=== PATIENT | male | born 1935 | race Caucasian/White ===

== ENCOUNTER 2017-11-29 11:46 | Emergency (ER) | payer MEDICARE ==
--- OUTSIDE RECORDS SUMMARY | 2017-11-29 12:25 | XMS REPORT ---
:1935 External Reference #:[id number] Author Organization [facility] Address [address] [id number] Phone [phone] Care Team Providers Name Role Phone Junior Hunt M.D. Care Team Information Irrigator Gravity Flow Unavailable Junior Hunt M.D. Primary Care Physician Unavailable Payers Type Date Identification Numbers Payment Provider Subscriber Medicare Primary Expires: Policy Number: [employer]-[place] Brandon Mckeon [id number] [facility] PayID: [id number] [address] [place] [address] Medigap Part B Expires: 2016 Policy Number: [facility] Parminder Mckeon [id number] [facility] PayID: [id number] [address] [address] [place] [address] Medigap Part B Expires: 2017 Policy Number: Isacc Mckeon [id number] [facility] PayID: [id number] [address] [address] Medigap Part B Policy Number: [id number] [facility] Brandon Mckeon Group Number: [id number] [address] [address] PayID: [id number] SophieJJ pierce [id number] Problems Date Description Provider Status Onset: 02/14/2009 Essential hypertension Sonny Perez MD Active Onset: 11/04/2017 Neoplasm of uncertain behavior of skin Sonny Perez MD Active Onset: 11/04/2017 Impacted cerumen Sonny Perez MD Active Family History Date Family Member(s) Problem(s) Comments General Cancer General Heart Disease Social History Type Date Description Comments Occupation Retired Cigarette Use Former Cigarette Smoker Packs Daily 1 for 12 years Cigarette Use quit at age 35 Cigars current.no Pipe current.no Smokeless Tobacco current.no ETOH Use Current Alcohol Use Occasionally Allergies, Adverse Reactions, Alerts Date Description Reaction Status Severity Comments 02/14/2009 NKDA active Medications Medication Date Status Form Strength Qnty SIG Indications Ordering Provider Aspir-81 00/00/ Active Tablets DR 81mg Unknown 0000 Gabapentin /00/ Active as Junior Hunt 0000 directed M.D. Atorvastatin 00/00/ Active Tablets 20mg Junior Hunt Calcium 0000 M.D. Multivitamins /00/ Hx Unknown 2011 Diltiazem 00/00/ Hx Unknown 2011 Aspirin /00/ Hx Unknown 2011 Simvastatin /00/ Hx Unknown 2014 Lyrica /00/ Hx Unknown 2014 Morphine Sulfate / Hx Solution 15mg Unknown 2014 Coumadin 0000/ Hx Tablets 7.5mg 1 po qod Junior Hunt 0000 - M.D. 2016 Amlodipine / Hx Tablets 2.5mg 1 by mouth Junior Hunt Besylate 0000 - every day M.D. 2017 Warfarin Sodium 0000/ Hx Tablets 5mg Junior Hunt 0000 - M.D. 2017 Immunizations CPT Code Status Date Vaccine Lot # [id number] Given Unknown Prevnar 13 For Intramuscular Use 44774 Given Unknown Influenza Virus Vaccine, 3 Years Of Age And Above, Intramuscular Vital Signs Date Vital Result Comment 11/04/2017 Weight 195.00 lb Weight in kg's 88.452 Height 70 inches 5'10" Height in cm's 177.8 cm BMI (Body Mass Index) 28.0 kg/m2 10/01/2016 BP Systolic 140 mmHg BP Diastolic 84 mmHg Heart Rate 70 /min Respiratory Rate 17 /min Weight 152.00 lb Weight in kg's 68.947 Height 72 inches 6'0" Height in cm's 182.9 cm BMI (Body Mass Index) 20.6 kg/m2 01/03/2015 BP Systolic 157 mmHg BP Diastolic 80 mmHg Heart Rate 60 /min Respiratory Rate 17 /min Weight 152.00 lb Weight in kg's 68.947 Height 72 inches 6'0" Height in cm's 182.9 cm BMI (Body Mass Index) 20.6 kg/m2 05/11/2013 BP Systolic 145 mmHg BP Diastolic 64 mmHg Heart Rate 64 /min Respiratory Rate 16 /min Weight 152.00 lb Weight in kg's 68.947 Height 72 inches 6'0" Height in cm's 182.9 cm BMI (Body Mass Index) 20.6 kg/m2 04/14/2013 BP Systolic 142 mmHg BP Diastolic 80 mmHg Heart Rate 78 /min Respiratory Rate 16 /min Weight 152.00 lb Weight in kg's 68.947 Height 72 inches 6'0" Height in cm's 182.9 cm BMI (Body Mass Index) 20.6 kg/m2 02/04/2012 BP Systolic 170 mmHg BP Diastolic 80 mmHg Heart Rate 72 /min Respiratory Rate 16 /min Weight 193.00 lb Weight in kg's 87.545 Height 72 inches 6'0" Height in cm's 182.9 cm BMI (Body Mass Index) 26.2 kg/m2 02/14/2009 BP Systolic 148 mmHg BP Diastolic 82 mmHg Heart Rate 73 /min Respiratory Rate 16 /min Results Description No Information Procedures Date CPT Code Description Status 11/04/2017 73378 Removal Wax Impaction Completed 10/01/2016 09857 Removal Wax Impaction Completed 01/03/2015 09841 Sialolithotomy; Submandibular, Sublingual Or Parotid. Completed 02/04/2012 34619 Removal Wax Impaction Completed 02/14/2009 56810 Removal Wax Impaction Completed Encounters Type Date Location Provider CPT E/M Dx Office Visit 11/04/2017 3:30p [facility],After 06/21/07 [place] [address] H61.23 D48.5 Office Visit 01/03/2015 8:45a [facility],After 06/21/07 [place] [address] 527.5 527.2 Office Visit 05/11/2013 3:00p [facility],After 06/21/07 [place] [address] 381.81 Office Visit 04/14/2013 9:00a [facility],After 06/21/07 [place] [address] 381.10 381.81 Plan of Care 11/04/2017 - Sonny Perez MDH61.23 Impacted cerumen, [id number] Neoplasm of uncertain behavior of skinComments:There was a somewhat suspicious lesion of the left lower eye lid. I like to get dermatology opinionregarding this.
[2017-11-29 12:29] VITALS: BP 152/94
--- NOTE | 2017-11-29 13:12 | UC ---
Skin Complaint HPI - HPI Summary HPI Summary: 81 yo mmale with tick bite noted this AM tick partially removed by ? only on since yesterday - History of Current Complaint Chief Complaint: UCSkin Time Seen by Provider: 11/29/17 12:39 Stated Complaint: TICK BITE Hx Obtained From: Patient Onset/Duration: Sudden Onset Skin Exposure Onset/Duration: Hours Ago - noted Onset Severity: Mild Current Severity: Mild Pain Intensity: 2 Pain Scale Used: 0-10 Numeric Location: Other - left groin Character: Redness Aggravating Factor(s): Nothing Alleviating Factor(s): Nothing Associated Signs & Symptoms: Positive: Negative - Allergy/Home Medications Allergies/Adverse Reactions: Allergies Allergy/AdvReac Type Severity Reaction Status Date / Time No Known Allergies Allergy Verified 05/07/14 12:55 Home Medications: Home Medications Atorvastatin* [Lipitor*] 20 mg PO 1700 11/29/17 [History Confirmed 11/29/17] Rivaroxaban TAB(*) [Xarelto 10 mg (*)] 11/29/17 [History] Review of Systems Constitutional: Negative Skin: Negative Eyes: Negative ENT: Negative Respiratory: Negative Cardiovascular: Negative Gastrointestinal: Negative Genitourinary: Negative Motor: Negative Neurovascular: Negative Musculoskeletal: Negative Neurological: Paresthesia - chronic Psychological: Negative Is Patient Immunocompromised?: No All Other Systems Reviewed And Are Negative: Yes PMH/Surg Hx/FS Hx/Imm Hx Previously Healthy: Yes Neurological History: Other 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 CARDIAC STENT 2004 (NO CARD 1.5T ONLY) - Social History Alcohol Use: Daily Alcohol Amount: 1 GLASS/DAY Substance Use Type: None Smoking Status (MU): Never Smoked Tobacco Type: Cigarettes Amount Used/How Often: 1PPD 10YRS Have You Smoked in the Last Year: No When Did the Patient Quit Smoking/Using Tobacco: 1968 - Immunization History Most Recent Influenza Vaccination: Fall 2011 Most Recent Tetanus Shot: Unknown Most Recent Pneumonia Vaccination: within last year or two Physical Exam Triage Information Reviewed: Yes Appearance: Well-Appearing, No Pain Distress, Well-Nourished Vital Signs: Initial Vital Signs Temp 98.3 F 06/11/18 12:23 Pulse 71 11/29/17 12:23 Resp 16 11/29/17 12:23 BP 152/94 11/29/17 12:23 Pulse Ox 97 11/29/17 12:23 ENT: Positive: Hearing grossly normal. Negative: Nasal congestion, Nasal drainage, Trismus, Muffled voice, Uvula midline Neck: Positive: Supple, Nontender Respiratory: Positive: Lungs clear, Normal breath sounds, No respiratory distress Cardiovascular: Positive: RRR, No Murmur Musculoskeletal: Positive: ROM Intact, No Edema Neurological: Positive: Alert Psychological Exam: Normal Skin Exam: Other - partial tick left groin- I removed most of it here with splinter forceps/single mandible remains Course/Dx - Diagnoses Provider Diagnoses: tick bite. Lyme disease prophylaxis Discharge - Sign-Out/Discharge Documenting (check all that apply): Discharge/Admit/Transfer - Discharge Plan Condition: Stable Disposition: HOME Prescriptions: DOXYcycline CAP(*) [DOXYcycline 100MG CAP(*)] 200 mg PO ONCE #2 cap Patient Education Materials: Tick Bite (ED) Referrals: Junior Hunt MD [Primary Care Provider] - If Needed - Billing Disposition and Condition Condition: STABLE Disposition: Home
== END 2017-11-29 13:00 | disposition home or self-care (01) ==
LOC: UCEAST 11:46
DX: S30.861A Insect bite (nonvenomous) of abdominal wall, initial encounter (principal); W57.XXXA Bitten or stung by nonvenomous insect and other nonvenomous arthropods, initial encounter; Y93.9 Activity, unspecified; Y92.9 Unspecified place or not applicable; G62.9 Polyneuropathy, unspecified; Z95.5 Presence of coronary angioplasty implant and graft; Z79.01 Long term (current) use of anticoagulants; Z85.038 Personal history of other malignant neoplasm of large intestine; Z85.820 Personal history of malignant melanoma of skin; Z87.891 Personal history of nicotine dependence
CPT/HCPCS: 99212; G0463